=== PATIENT | male | born 1985 | race Two or more races ===

== ENCOUNTER 2016-12-15 08:09 | Day surgery (SDC) | payer OTHER ==
[~2016-12-15] VITALS: Ht 182.9 cm; Wt 92.9 kg
[2016-12-15 10:16] VITALS: Ht 182.9 cm; Wt 92.9 kg
[2016-12-15 10:38] VITALS: BP 131/84; PULSE 72; RESP 18
[2016-12-15] MEDS ORDERED: MIDAZOLAM 1 MG/ML 2 ML INJ ONE ×2 (11:35)
[2016-12-15] MEDS ORDERED: FENTAnyl 50 MCG/ML VIAL ONE (11:36)
--- NOTE | 2016-12-15 11:38 | GILP ---
DATE OF PROCEDURE: 12/15/2016 PROCEDURE PERFORMED: Colonoscopy with biopsy. INDICATION: A 31-year-old male undergoing this procedure for surveillance of colon polyp. He had a polyp removed 18 years ago. INFORMED CONSENT: The risk of the procedure, related and unrelated complications, anesthetic sedati ve risks, alternatives discussed and informed consent was obtained. DESCRIPTION OF PROCEDURE: The patient was brought to the GI lab, sedated with 4 mg of Versed and 10 0 mcg of fentanyl. After optimum sedation, scope was passed with much ease into the rectum and adva nced all the way into the cecum and finally into terminal ileum. Terminal ileum was normal up to 2 feet. Rest of the colon was normal, which was thoroughly inspected while coming out. Retroversion done, no growth was seen. No internal hemorrhoids identified. The patient had AVM at 30 cm, 1 cm i n diameter. Small hemorrhoids identified on antegrade examination. IMPRESSION: 1. Hemorrhoids. 2. 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 3. Negative all the way into cecum. 4. Negative terminal ileum. 5. Clarity and cleanliness was good. PLAN: Stay on high fiber diet. Next colonoscopy after 10 years. Dictated By: JOSELITO BRANDT/NTS Conf#: [id number] DID#: [id number] CC: JOSELITO PENDLETON MD;*EndCC*
[2016-12-15 12:00] VITALS: BP 136/90; PULSE 84
== END 2016-12-15 12:12 | disposition home or self-care (01) ==
LOC: GIL 08:09
PROVIDERS: ATTEND Internal Medicine Gastroenterology
DX: Z86.010 Personal history of colon polyps (principal); K64.9 Unspecified hemorrhoids
CPT/HCPCS: 45378; J2250; J3010; Z7610

== ENCOUNTER 2018-08-03 08:19 | Day surgery (SDC) | END 2018-08-03 14:17 | disposition home or self-care (01) ==